=== PATIENT | female | born 1970 | race Caucasian/White ===

== ENCOUNTER 2017-01-09 17:01 | Emergency (ER) | payer BC, OTHER ==
[~2017-01-09] VITALS: Ht 162.6 cm; Wt 53.8 kg
[~2017-01-09 17:01] MED LIST: ADVIN25050 PO; ALBU1AER9 INH; ALBUAER INH; FSMD/70 PO; IMT100 PO; ONDA4TAB4 PO
[2017-01-09 17:04] VITALS: TEMP 36.9; Ht 162.6 cm; Wt 53.8 kg
[2017-01-09] MEDS ORDERED: KETOROLAC TROMETHAMINE 60 MG/2 ML VIAL IM STA (17:15)
[2017-01-09] MEDS ORDERED: HYDROmorphone INJ 1 MG/ML SYR IM STA ×2 (17:15→17:58)
[2017-01-09] MEDS ORDERED: ONDANSETRON 4MG OD TAB PO STA (17:15)
--- NOTE | 2017-01-09 18:34 | EMERGENCY ROOM VISIT NOTE ---
History First contact with patient: 17:08 Chief Complaint: HEADACHE Stated Complaint: MIGRAINE History of Present Illness The patient is a 47 year old female who presents to the Emergency Room with complaints of migraine headache which started yesterday afternoon. The patient states the pain is behind the right eye and she rates it at a 7 out of 10. The patient admits to some visual changes and dizziness. The patient also admits to nausea and vomiting but states she has been able to keep hydrated with drinking water. The patient states that she took 2 doses of her Imitrex without any relief of the headache. The patient states that her symptoms are typical for her migraine headaches. This is not the worst headache of her life. The patient is requesting her medications IM rather than IV. The patient states her family doctor is Dr. Villa. She states she used to see Dr. Boyd for her migraines and has an appointment in January 20 get established with a new neurologist. Review of Systems 10 system review was performed and was negative unless stated otherwise history of present illness. Past Medical/Surgical History Medical Problems: (1) Abdominal pain (2) Asthma (3) Asthma, Unspecified (4) Bronchitis (5) Bronchitis (6) Calculus Of Kidney (7) Chest pain (8) Diverticulitis Colon (W/O Ment Of Hemorrhage) (9) Diverticulosis Colon (W/O Ment Of Hemorrhage) (10) Emphysema (11) Emphysema Nec (12) Esophageal Reflux (13) GERD (gastroesophageal reflux disease) (14) Kidney stones (15) Migraine (16) Migraine (17) Tobacco Use Disorder Surgical Problems: (1) Cholecystectomy (2) H/O section (3) History of colon resection (4) History of lithotripsy (5) Hysterectomy Family History Diabetes mellitus FH: cancer FH: lung disease Gallbladder disease Hypertension Social History Smoking Status: Current Every Day Smoker Alcohol Use: occasionally Drug Use: none Marital Status: Housing Status: lives with significant other Occupation Status: employed Current/Historical Medications Scheduled Albuterol Sulfate (Proventil Hfa), 2 PUFFS INH Q4 Fluticasone Prop/Salmeterol (Advair Diskus 250-50 Mcg/Dose), 1 INHA PO BID Scheduled PRN Sumatriptan Succinate (Imitrex), 100 MG PO UD PRN for Headache Allergies Coded Allergies: Levofloxacin (Verified Allergy, Severe, ANAPHYLAXIS, 12/31/15) Facial swelling and hives Benzyl Alcohol (Verified Allergy, Mild, UNKNOWN, 12/31/15) Prochlorperazine (Verified Allergy, Mild, UNKNOWN, 12/31/15) Saccharin (Verified Allergy, Mild, UNKNOWN, 12/31/15) Morphine (Verified Allergy, Unknown, itchy, 12/31/15) Penicillins (Verified Allergy, Unknown, SKIN PEELS, 12/31/15) Physical Exam Vital Signs Date Time Temp Pulse Resp B/P Pulse Ox O2 Delivery O2 Flow Rate FiO2 01/09/17 17:04 36.9 109 18 159/100 98 Room Air Physical Exam GENERAL: 47-year-old white female appears in no acute distress. MENTAL STATUS: Patient is alert and oriented x3 EYES: PERRLA. EOMs intact. Funduscopic exam unremarkable. EARS: Canals clear. TMs without fluid level noted. NECK: Supple, no lymphadenopathy noted. No carotid bruits noted. LUNGS: Clear auscultation without wheezes rales or rhonchi. CARDIAC: Regular rate and rhythm without murmur. Pulses is full and equal throughout. ABDOMEN: Positive bowel sounds all 4 quadrants. Soft, nontender to palpation without organomegaly or masses. NEURO:Cranial nerves two through 12 intact. Cerebellar function intact with [id number]. Fine motor intact with alternating finger motions. Medical Decision & Procedures Medications Administered Medications (Trade) Dose Ordered Sig/Fuad Route Start Time Stop Time Status Last Admin Dose Admin Hydromorphone HCl (Dilaudid Inj) 1 mg NOW STAT IM 01/09/17 17:15 01/09/17 17:17 DC 01/09/17 17:24 1 MG Ketorolac Tromethamine (Toradol Inj) 60 mg NOW STAT IM 01/09/17 17:15 01/09/17 17:17 DC 01/09/17 17:23 60 MG Ondansetron HCl (Zofran Odt) 4 mg NOW STAT PO 01/09/17 17:15 01/09/17 17:17 DC 01/09/17 17:23 4 MG Hydromorphone HCl (Dilaudid Inj) 1 mg NOW STAT IM 01/09/17 17:58 01/09/17 18:00 DC 01/09/17 18:07 1 MG ED Course The patient was evaluated. Patient's EMR and medication list were reviewed. The patient was given Zofran 4 mg ODT for nausea, Dilaudid 1 mg IM and Toradol 60 mg IM for her headache. The patient was reevaluated and stated her stomach felt better but she still had a headache. The patient was therefore given another 1 mg of Dilaudid IM.. The patient was again reevaluated and stated she was feeling much better. The patient was discharged home with her driving. Medical Decision Differential includes: Acute intracranial bleed, trauma, meningitis, encephalitis, increased intracranial pressure, mass or mass effect, facial or dental infection, temporal arteritis, CVA, TIA, acute hypertensive emergency, sinusitis, carbon monoxide exposure. The patient presented with her typical migraine headache symptoms therefore no additional diagnostic imaging was performed. Impression Primary Impression: Migraine Departure Information Dispostion Home / Self-Care Condition GOOD Referrals Roberto Galvez M.D. (PCP) Forms HOME CARE DOCUMENTATION FORM, IMPORTANT VISIT INFORMATION Patient Instructions ED Headache Migraine, [facility] Additional Instructions Go home and rest in a dark room. Do not drive for the remainder of the evening. Continue current medications as prescribed. If symptoms persist or worsen, follow-up with your family physician or neurologist. Problem Qualifiers Primary Impression: Migraine Migraine type: with aura
[2017-01-09 18:59] VITALS: BP 151/114; PULSE 99; O2SAT 94
== END 2017-01-09 19:01 | disposition home or self-care (01) ==
LOC: C.EDB 17:01 → C.EDC 19:01
DX: G43.909 Migraine, unspecified, not intractable, without status migrainosus (principal); J45.909 Unspecified asthma, uncomplicated; K21.9 Gastro-esophageal reflux disease without esophagitis; K57.90 Diverticulosis of intestine, part unspecified, without perforation or abscess without bleeding; J43.9 Emphysema, unspecified; F17.200 Nicotine dependence, unspecified, uncomplicated; Z87.442 Personal history of urinary calculi; Z90.49 Acquired absence of other specified parts of digestive tract; Z90.710 Acquired absence of both cervix and uterus; Z79.899 Other long term (current) drug therapy; Z88.0 Allergy status to penicillin; Z88.5 Allergy status to narcotic agent; Z88.8 Allergy status to other drugs, medicaments and biological substances

== ENCOUNTER 2017-11-21 10:42 | Emergency (ER) | payer OTHER ==
[~2017-11-21] VITALS: Ht 162.6 cm; Wt 59.0 kg
[~2017-11-21 10:42] MED LIST changes: -ALBU1AER9 INH; -FSMD/70 PO; -ONDA4TAB4 PO
[2017-11-21 10:43] VITALS: TEMP 37; Ht 162.6 cm; Wt 59.0 kg
[2017-11-21] MEDS ORDERED: BUPR-79 PO (10:54)
[2017-11-21] MEDS ORDERED: KETOROLAC TROMETHAMINE 30 MG/ML VIAL IV STA (11:27)
--- NOTE | 2017-11-21 11:27 | EMERGENCY ROOM VISIT NOTE ---
History First contact with patient: 11:08 Chief Complaint: HEADACHE Stated Complaint: LUMP ON FOREHEAD, HEADACHE, SWELLING UNDER EYES History of Present Illness The patient is a 47 year old female who presents to the Emergency Room with complaints of "a lump in the middle of my forehead which began on Monday". The patient states since this time, the mass has been becoming larger with significantly increased pain and swelling. She states the swelling is radiating down her face, and she now has swelling below both of her eyes, worse on the right. She states she noticed the swelling last night, but when she awoke this morning it became much worse. She does have a headache and nausea associated with her symptoms. She denies any visual disturbances. She denies any drainage. She does not have a history of subcutaneous abscesses or cysts. She denies any systemic illness including fever, chills, or vomiting. She denies any recent illness including congestion, sore throat, runny nose, otalgia , or sinus pressure. She describes the pain she is experiencing now as a pressure sensation in her forehead, on both sides. She states this is significantly different than previous migraines she has experienced. Review of Systems A complete 10 point review of systems was reviewed with the patient with pertinent positives and negatives as per history of present illness. All else were negative. Past Medical/Surgical History Medical Problems: (1) Abdominal pain (2) Asthma (3) Asthma, Unspecified (4) Bronchitis (5) Bronchitis (6) Calculus Of Kidney (7) Chest pain (8) Diverticulitis Colon (W/O Ment Of Hemorrhage) (9) Diverticulosis Colon (W/O Ment Of Hemorrhage) (10) Emphysema (11) Emphysema Nec (12) Esophageal Reflux (13) GERD (gastroesophageal reflux disease) (14) Kidney stones (15) Migraine (16) Migraine (17) Tobacco Use Disorder Surgical Problems: (1) Cholecystectomy (2) H/O section (3) History of colon resection (4) History of lithotripsy (5) Hysterectomy Family History Diabetes mellitus FH: cancer FH: lung disease Gallbladder disease Hypertension Social History Smoking Status: Current Every Day Smoker Alcohol Use: occasionally Drug Use: none Marital Status: Housing Status: lives with significant other Occupation Status: employed Current/Historical Medications Scheduled Albuterol Sulfate (Proventil Hfa), 2 PUFFS INH Q4 Bupropion (Wellbutrin Sr), 150 MG PO BID Cephalexin Monohydrate (Keflex), 500 MG PO QID Fluticasone Prop/Salmeterol (Advair Diskus 250-50 Mcg/Dose), 1 INHA PO BID Sulfa/Trimethoprim (Bactrim Ds 800MG/160MG), 1 TAB PO BID Scheduled PRN Sumatriptan Succinate (Imitrex), 100 MG PO UD PRN for Headache Physical Exam Vital Signs Date Time Temp Pulse Resp B/P (MAP) Pulse Ox O2 Delivery O2 Flow Rate FiO2 11/21/17 10:43 37.0 99 16 165/113 99 Physical Exam VITALS: Vitals are noted on the nurse's note and reviewed by myself. Vital signs stable. GENERAL: This is a 47-year-old white female, in no acute distress, nondiaphoretic, well-developed well-nourished. SKIN: There is an erythematous, fluctuant mass noted on the middle of the forehead. This is mobile. There is no pointing or draining. There is swelling noted to the right side of the face more so than the left. The swelling is more prominent over the nose and periorbitally. The skin was otherwise without rashes, erythema, edema, or bruising. There is no tenting of the skin. Capillary reflex less than 2 seconds. HEAD: Normocephalic atraumatic. EARS: External auditory canals clear, tympanic membranes pearly echevarria without erythema or effusion bilaterally. EYES: Pupils equal round and reactive to light and accommodation. Conjunctivae without injection, sclerae without icterus. Extraocular movements intact. NOSE: Patent, turbinates without inflammation or discharge. No sinus tenderness. MOUTH: Mucous membranes moist. Tonsils are not enlarged. Pharynx without erythema or exudate. Uvula midline. Airway patent. Tongue does not deviate. NECK: Supple without nuchal rigidity. No lymphadenopathy. No thyromegaly. Cervical spine is nontender. No JVD. HEART: Regular rate and rhythm without murmurs gallops or rubs. LUNGS: Clear to auscultation bilaterally without wheezes, rales or rhonchi. No dullness to percussion. No retractions or accessory muscle use. MUSCULOSKELETAL: No muscle atrophy, erythema, or edema noted. Full range of motion without joint tenderness in all extremities. No tenderness to palpation. Normal gait. Strength 5/5 throughout. NEURO: Patient was alert and oriented to person place and time. Normal sensation to light and sharp touch. No focal neurological deficits. Medical Decision & Procedures ER Provider Diagnostic Interpretation: FACIAL-MAXILLOFACIAL WITH CLINICAL HISTORY: 47 years-old Female presenting with abscess, spreading redness/swelling right face. TECHNIQUE: Multidetector CT of the face was performed without the use of intravenous contrast. IV contrast: None. A dose lowering technique was used consistent with the principles of ALARA (as low as reasonably achievable). COMPARISON: None. CT DOSE (mGy.cm): The estimated cumulative dose is 681.17 mGy.cm. FINDINGS: Buzzsaw Operator topogram: Unremarkable. Infiltration of the subcutaneous tissue in the midline frontal region. This is rim-enhancing with a central 3 mm focus of fluid density. No subjacent osseous erosion. Paranasal sinuses and mastoid air cells clear. No other sites of inflammatory change. Orbits normal. No post septal inflammatory change. Globes normal. Vessels patent. No lymphadenopathy. Asymmetric effacement of the left tonsillar fossa may relate to edematous uvula or adenoidal lymphoid tissue hyperplasia. Limited intracranial dilation within normal limits. IMPRESSION: 1. Focal inflammatory change in the subcutaneous tissue of the right frontal region suggestive of a tiny abscess. No subjacent osseous erosion or sinus disease. 2. Either uvula edema or adenoidal lymphoid tissue hyperplasia is present. Correlate with physical exam. Electronically signed by: Gennaro Morales M.D. 11/21/2017 12:50 PM Dictated Date/Time: 11/21/2017 12:42 PM Laboratory Results 11/21/17 11:43 Red Blood Count 4.06, Mean Corpuscular Volume 99.8, Mean Corpuscular Hemoglobin 34.2, Mean Corpuscular Hemoglobin Concent 34.3, Mean Platelet Volume 9.2, Neutrophils (%) (Auto) 62.0, Lymphocytes (%) (Auto) 29.3, Monocytes (%) (Auto) 7.3, Eosinophils (%) (Auto) 0.8, Basophils (%) (Auto) 0.4, Neutrophils # (Auto) 2.96, Lymphocytes # (Auto) 1.40, Monocytes # (Auto) 0.35, Eosinophils # (Auto) 0.04, Basophils # (Auto) 0.02 11/21/17 11:43 Test 11/21/17 11:43 White Blood Count 4.78 K/uL (4.8-10.8) Red Blood Count 4.06 M/uL (4.2-5.4) Hemoglobin 13.9 g/dL (12.0-16.0) Hematocrit 40.5 % (37-47) Mean Corpuscular Volume 99.8 fL (80-100) Mean Corpuscular Hemoglobin 34.2 pg (25-34) Mean Corpuscular Hemoglobin Concent 34.3 g/dl (32-36) Platelet Count 352 K/uL (130-400) Mean Platelet Volume 9.2 fL (7.4-10.4) Neutrophils (%) (Auto) 62.0 % Lymphocytes (%) (Auto) 29.3 % Monocytes (%) (Auto) 7.3 % Eosinophils (%) (Auto) 0.8 % Basophils (%) (Auto) 0.4 % Neutrophils # (Auto) 2.96 K/uL (1.4-6.5) Lymphocytes # (Auto) 1.40 K/uL (1.2-3.4) Monocytes # (Auto) 0.35 K/uL (0.11-0.59) Eosinophils # (Auto) 0.04 K/uL (0-0.5) Basophils # (Auto) 0.02 K/uL (0-0.2) RDW Standard Deviation 47.4 fL (36.4-46.3) RDW Coefficient of Variation 13.0 % (11.5-14.5) Immature Granulocyte % (Auto) 0.2 % Immature Granulocyte # (Auto) 0.01 K/uL (0.00-0.02) Erythrocyte Sedimentation Rate 12 mm/hr (0-21) Anion Gap 8.0 mmol/L (3-11) Est Creatinine Clear Calc Drug Dose 70.8 ml/min Estimated GFR () 96.0 Estimated GFR (Non- 82.8 BUN/Creatinine Ratio 13.1 (10-20) Lactic Acid Level 1.8 mmol/L (0.4-2.0) Calcium Level 9.2 mg/dl (8.5-10.1) Total Bilirubin 0.9 mg/dl (0.2-1) Aspartate Amino Transf (AST/SGOT) 27 U/L (15-37) Alanine Aminotransferase (ALT/SGPT) 37 U/L (12-78) Alkaline Phosphatase 60 U/L (45-117) C-Reactive Protein 0.38 mg/dl (0-0.29) Total Protein 7.5 gm/dl (6.4-8.2) Albumin 4.0 gm/dl (3.4-5.0) Globulin 3.5 gm/dl (2.5-4.0) Albumin/Globulin Ratio 1.2 (0.9-2) Medications Administered Medications (Trade) Dose Ordered Sig/Fuad Route Start Time Stop Time Status Last Admin Dose Admin Ketorolac Tromethamine (Toradol Inj) 30 mg NOW STAT IV 11/21/17 11:27 11/21/17 11:34 DC 11/21/17 11:58 30 MG Ceftriaxone Sodium (Rocephin Inj) 1 gm NOW STAT IV 11/21/17 12:09 11/21/17 12:11 DC 11/21/17 12:14 1 GM ED Course The patient was seen and evaluated as above. I discussed the case with Dr. Benitez. IV access obtained, labs drawn. Patient was given 30 mg Toradol and [address] scan of the facial bones with IV contrast was ordered and performed. This was reviewed by myself and radiologist as above. I discussed the case and findings again with Dr. Benitez. We agreed on treatment plan. I discussed the findings and plan of care with the patient at bedside. Discharge instructions reviewed, patient was discharged home in good condition. Medical Decision This is a 47-year-old female patient presents to the emergency department today complaining of an abscess on her forehead with radiating swelling and pain down into her face. The swelling seemed to occur spontaneously last night, and worsened by this morning. The patient denies any fevers, chills, body aches, or vomiting, but she does complain of nausea associated with a severe headache. CT scan was performed due to the symptoms of swelling in the face and abscess , and did not show any suspicious findings with the exception of uvula deviation. This swelling and deviation does appear to be worse on the left side , whereas the majority of the other swelling is on the right. I am not convinced that this is related to the patient's primary complaint, and she denies any difficulty breathing or feelings of swelling in the throat. The patient was given 1 dose of IV antibiotics here as well as Toradol to help with swelling and pain, notes very mild improvement in symptoms. The patient will be treated outpatient with oral antibiotics, and was encouraged to follow-up closely with her primary care provider. An appointment was scheduled by the manager of case management for tomorrow with the patient's PCP. All questions were answered to the patient's satisfaction. She was certainly encouraged to come immediately back to the emergency department for any worsening symptoms. Differential diagnosis includes cellulitis, abscess, pots puffy tumor, periorbital cellulitis, necrotizing fasciitis, burn, dermatitis, impetigo, erythema multiforme, bite, osteomyelitis, Aranda-Estevan Syndrome, gangrene, malignancy, and others The chart was completed utilizing [employer] Speech voice recognition software. Grammatical errors, random word insertions, pronoun errors, and incomplete sentences are an occasional consequence of this system due to software limitations, ambient noise, and hardware issues. Any formal questions or concerns about the content, text, or information contained within the body of this dictation should be directly addressed to the provider for clarification. Medication Reconcilliation Current Medication List: was personally reviewed by la Blood Pressure Screening Patient's blood pressure: Elevated blood pressure Blood pressure disposition: Referred to PCP Impression Primary Impression: Abscess Additional Impression: Deviation of uvula to right Departure Information Dispostion Home / Self-Care Condition GOOD Prescriptions Sulfa/Trimethoprim (Bactrim Ds 800MG/160MG) Tab 1 TAB PO BID for 10 Days, #20 TAB Prov: Christy Rojas PA-C 11/21/17 Cephalexin Monohydrate (Keflex) 500 Mg Cap 500 MG PO QID for 10 Days, #40 CAP Prov: Christy Rojas PA-C 11/21/17 Referrals Roberto Galvez M.D. (PCP) Patient Instructions ED Cellulitis Facial, My [facility] Additional Instructions You were seen in the emergency department today for an abscess of your forehead. You were given a dose of IV antibiotics while here in the emergency department. Please monitor for any allergic reactions. You were prescribed Keflex and Bactrim to be taken as prescribed. This is an antibiotic. All antibiotics have the potential to cause diarrhea. Stop this medication and contact a medical provider if you were to develop any significant adverse side effects including: wheezing, shortness of breath, passing out, vomiting, or a diffuse rash. Always take antibiotics as directed and COMPLETE the ENTIRE course regardless of the improvement of your symptoms. You may want to consider taking a probiotic such as align or eating activity a yogurt to help prevent diarrhea or GI upset. Use warm, moist compresses over the wound to belt maker helper with drainage and comfort. Follow-up with your primary care provider tomorrow at your scheduled appointment for recheck. Return IMMEDIATELY to the emergency department for any worsening pain, spreading redness, difficulty breathing, fever, chills, worsening swelling, or other concerning symptoms. Problem Qualifiers
[2017-11-21] MEDS ORDERED: OPTIRAY 320 IV PRN (11:45)
[2017-11-21 11:54] LABS: BASO % 0.4 %; BASO ABS # 0.02 K/uL (0-0.2); EOS % 0.8 %; EOS ABS # 0.04 K/uL (0-0.5); HEMATOCRIT 40.5 % (37-47); HEMOGLOBIN 13.9 g/dL (12.0-16.0); IG# 0.01 K/uL (0.00-0.02); LYMPH % 29.3 %; MEAN CELL VOLUME 99.8 fL (80-100); MEAN CORPUSCULAR HEMOGLOBIN 34.2 pg (25-34); MEAN CORPUSCULAR HGB CONC 34.3 g/dl (32-36); MEAN PLATELET VOLUME 9.2 fL (7.4-10.4); MONO % 7.3 %; MONO ABS # 0.35 K/uL (0.11-0.59); NEUT ABS # 2.96 K/uL (1.4-6.5); PLATELET COUNT 352 K/uL (130-400); RED CELL DISTRIBUTION WIDTH SD 47.4 fL (36.4-46.3); WHITE BLOOD COUNT 4.78 K/uL (4.8-10.8)
[2017-11-21] MEDS ORDERED: CEFTRIAXONE SOD INJ 1 GM ADDVIAL IV STA (12:09)
[2017-11-21 12:17] LABS: CALCIUM 9.2 mg/dl (8.5-10.1); CREATININE 0.83 mg/dl (0.60-1.20); POTASSIUM 3.6 mmol/L (3.5-5.1)
[2017-11-21 12:20] LABS: TOTAL PROTEIN 7.5 gm/dl (6.4-8.2)
--- NOTE | 2017-11-21 12:51 | DIAGNOSTIC IMAGING REPORT ---
FACIAL-MAXILLOFACIAL WITH CLINICAL HISTORY: 47 years-old Female presenting with abscess, spreading redness/swelling right face. TECHNIQUE: Multidetector CT of the face was performed without the use of intravenous contrast. IV contrast: None. A dose lowering technique was used consistent with the principles of ALARA (as low as reasonably achievable). COMPARISON: None. CT DOSE (mGy.cm): The estimated cumulative dose is 681.17 mGy.cm. FINDINGS: Automatic Shirring Machine Operator topogram: Unremarkable. Infiltration of the subcutaneous tissue in the midline frontal region. This is rim-enhancing with a central 3 mm focus of fluid density. No subjacent osseous erosion. Paranasal sinuses and mastoid air cells clear. No other sites of inflammatory change. Orbits normal. No post septal inflammatory change. Globes normal. Vessels patent. No lymphadenopathy. Asymmetric effacement of the left tonsillar fossa may relate to edematous uvula or adenoidal lymphoid tissue hyperplasia. Limited intracranial dilation within normal limits. IMPRESSION: 1. Focal inflammatory change in the subcutaneous tissue of the right frontal region suggestive of a tiny abscess. No subjacent osseous erosion or sinus disease. 2. Either uvula edema or adenoidal lymphoid tissue hyperplasia is present. Correlate with physical exam. Electronically signed by: Gennaro Morales M.D. 11/21/2017 12:50 PM Dictated Date/Time: 11/21/2017 12:42 PM
[2017-11-21] MEDS ORDERED: CEPH500C PO (13:32)
[2017-11-21] MEDS ORDERED: SULF800T23 PO (13:32)
[2017-11-21 13:43] VITALS: BP 157/108; PULSE 84; O2SAT 98
--- NOTE | 2017-11-21 14:03 | Pharmacy Progress Note ---
ED Pharmacist Progress Note Date of Service: Nov 21, 2017. [facility] pharmacy on phone calling in regards to pcn allergy and prescription for keflex. Patient received dose of rocephin here. Discussed with Christy GARCIA who is aware of the allergy and is okay with filling keflex prescription.
== END 2017-11-21 13:43 | disposition home or self-care (01) ==
LOC: C.EDB 10:44 → C.EDD 13:43
DX: L02.01 Cutaneous abscess of face (principal); G52.3 Disorders of hypoglossal nerve; J45.909 Unspecified asthma, uncomplicated; Z87.442 Personal history of urinary calculi; K57.32 Diverticulitis of large intestine without perforation or abscess without bleeding; K57.30 Diverticulosis of large intestine without perforation or abscess without bleeding; K21.9 Gastro-esophageal reflux disease without esophagitis; J43.9 Emphysema, unspecified; Z83.3 Family history of diabetes mellitus; Z80.9 Family history of malignant neoplasm, unspecified; Z83.6 Family history of other diseases of the respiratory system; Z83.79 Family history of other diseases of the digestive system; F17.210 Nicotine dependence, cigarettes, uncomplicated; Z79.899 Other long term (current) drug therapy; K13.79 Other lesions of oral mucosa